=== PATIENT | female | born 1980 | race Caucasian/White ===

== ENCOUNTER 2017-12-24 22:56 | Emergency (ER) | payer SELFPAY ==
[2017-12-24 23:05] VITALS: BP 125/94
[2017-12-24] MEDS ORDERED: PROZAC20 M1 PO (23:11)
[2017-12-24] MEDS ORDERED: DESYREL 100MG100 MG PO (23:12)
[2017-12-24] MEDS ORDERED: BUSPAR 15MG TAB15 MG PO (23:12)
[2017-12-24 23:47] LABS: URINE APPEARANCE HAZY; URINE COLOR YELLOW
[2017-12-24 23:50] LABS: URINE BILIRUBIN NEGATIVE (NEGATIVE); URINE BLOOD NEGATIVE (NEGATIVE); URINE GLUCOSE NEGATIVE (NEGATIVE); URINE KETONE NEGATIVE (NEGATIVE); URINE LEUKOCYTE ESTERASE NEGATIVE (NEGATIVE); URINE MUCUS PRESENT (NOT PRESENT); URINE NITRATE NEGATIVE (NEGATIVE); URINE PROTEIN(semi-quant) NEGATIVE (NEGATIVE); URINE UROBILINOGEN NORMAL (NORMAL)
[2017-12-25 00:20] LABS: BASO # 0.1 (0.02-0.10); EOS # 0.4 (0.04-0.40); EOS % 2.8 % (1.0-5.0); HEMATOCRIT 40.7 % (37.0-47.0); HEMOGLOBIN 12.6 g/dL (12.5-16.0); MEAN CELL VOLUME 81 fl (78-100); MEAN CORPUSCULAR HEMOGLOBIN 25 pg (27-31); MEAN CORPUSCULAR HGB CONC 31 g/dL (33-37); MEAN PLATELET VOLUME 9.6 fl (7.4-10.4); MONO # 1.3 (0.20-0.80); NEU # 5.5 (1.40-6.50); PLATELET COUNT 347 K/mm3 (130-400); RED BLOOD COUNT 5.04 M/mm3 (4.10-5.30); RED CELL DISTRIBUTION WIDTH 15.3 % (11.5-14.5); WHITE BLOOD COUNT 12.5 K/mm3 (4.8-10.8)
[2017-12-25 00:29] LABS: ALBUMIN 4.2 g/dL (3.5-5.0); BUN/CREATININE RATIO 6.8 (6.0-26.0); CALCIUM 9.3 mg/dL (8.4-10.2); POTASSIUM 3.9 mmol/L (3.6-5.0); TOTAL BILIRUBIN 0.4 mg/dL (0.2-1.3); TOTAL PROTEIN 8.7 g/dL (6.3-8.2)
[2017-12-25 00:30] LABS: LYMPH# 5.2 (1.50-4.00)
[2017-12-25 00:37] LABS: CKMB ISOENZYME 1.5 ng/mL (0.6-3.5)
[2017-12-25 00:38] LABS: TROPONIN-I < 0.03 ng/mL (0.00-0.06)
== END 2017-12-25 00:46 | disposition home or self-care (01) ==
LOC: ED 22:56
PROVIDERS: Nurse Practitioner Primary Care
DX: F15.920 Other stimulant use, unspecified with intoxication, uncomplicated (principal); F17.200 Nicotine dependence, unspecified, uncomplicated; Z91.19 Patient's noncompliance with other medical treatment and regimen; F41.9 Anxiety disorder, unspecified; R00.0 Tachycardia, unspecified